=== PATIENT | male | born 2000 ===

== ENCOUNTER 2023-10-02 21:16 | Emergency (ER) | payer MEDICAID, SELFPAY ==
[2023-10-02 21:23] VITALS: BP 168/94; PULSE 106; O2SAT 99
[2023-10-02 22:33] VITALS: BP 153/90; PULSE 101; RESP 18; TEMP 37.2; O2SAT 99; BMI 32.9
--- NOTE | 2023-10-02 22:42 | ED.GENADULT ---
HPI - General Adult General Chief complaint: Skin/Abscess/Foreign Body Stated complaint: R KNEE PAIN Time Seen by Provider: 10/03/23 00:27 Source: patient Mode of arrival: ambulatory Limitations: no limitations History of Present Illness HPI narrative: Patient is a 22-year-old male who presents emergency department for evaluation of an abscess over the right knee. Denies any injury, no of bite, or additional skin lesions. The area is red, swollen and painful. He is able to walk on the leg, able to bend only to 90 degrees reportedly due to pain. Denies numbness, tingling, cold sensation to the foot. Denies fevers or chills. Related Data Previous Rx's Medication Instructions Recorded cephalexin 500 mg capsule 500 mg PO QID #27 caps 10/03/23 doxycycline hyclate 100 mg capsule 100 mg PO BID #13 caps 10/03/23 Allergies Allergy/AdvReac Type Severity Reaction Status Date / Time No Known Allergies Allergy Verified 10/03/23 01:05 Review of Systems Review of Systems: Yes all other systems are reviewed and are negative [facility] Past Medical History Attestation statement: The following information was validated with the patient. Source: old records reviewed Social History Social History Advance Directives: No Advance Directives Information Provided: Yes Physical Exam ED Vital Signs: Vital Signs - 24 hr 10/02/23 22:33 Temperature 99.0 F Pulse Rate 101 H Respiratory Rate 18 Blood Pressure 153/90 H Pulse Oximetry 99 Oxygen Delivery Method Room Air BMI result Body Mass Index 32.9 Appearance: Alert.?Oriented to person, place and time. No acute distress.?Normal affect.? Neck: Normal inspection.? Neck supple.?? CVS: Heart sounds normal. Normal heart rate and rhythm.? Pulses normal.?? Respiratory: No respiratory distress.? Lung sounds clear to auscultation bilaterally?? Skin: Skin warm and dry.? Normal skin color.? Extremities: No lower extremity edema.? No calf ttp?parham so-called lateral mood abscess, central fluctuance or yellow discoloration of surrounding erythema induration and warmth. Appears superficial, does not extend further. His there is no swelling to the knee joint self. 2+ DP/PT pulse bilaterally. Neuro: Moves all extremities spontaneously. Sensation intact bilaterally. Ambulates with normal steady gait. Course Course Course Narrative: RME performed by Marry Harrington PA-C. Patient is a 22 year old assigned male at presenting to the emergency department with an ingrown hair / abscess to the right knee. Patient placed back in the waiting room pending room availability. Procedures Abscess I/D Site: lower extremity Side (if applicable): right Local Anesthetic: lidocaine 1% Amount of anesthesia used (mL): 2 Technique: needle aspiration and incised with blade Irrigation: Yes Packing used?: none Medical Decision Making Medical Decision Making MDM Narrative: Patient is a 22-year-old male with no reported past medical history presenting to emergency department with concern for right knee. History physical exam consistent with abscess. No systemic toxicity, and patient is well-appearing. There is surrounding cellulitis. Not consistent with necrotizing fasciitis, myositis, DVT, osteomyelitis, septic arthritis. Patient is now status post incision and drainage of abscess and tolerated the procedure well. No complications. No labs or imaging indicated at this time. Will discharge home with course of oral antibiotics and symptomatic treatment instructions. Discussed reasons to return to the emergency department, and follow-up with primary care provider. Patient agreeable with plan of care. Differential Diagnosis Differential Diagnoses: The differential diagnosis associated with the presentation includes (As noted above) Tests considered The following testing was considered but not selected: Considered serum labs, see narrative above, deferred Prescription Management I considered prescription management with: Pain Medication (Acetaminophen/ibuprofen) and Antibiotic Discharge Plan Discharge Clinical Impression: Abscess of skin or subcutaneous tissue Patient Disposition: Home, Self-Care Instructions: Abscess (ED), Abscess Incision and Drainage (DC) Prescriptions: New doxycycline hyclate 100 mg capsule 100 mg PO BID Qty: 13 0RF cephalexin 500 mg capsule 500 mg PO QID Qty: 27 0RF
[2023-10-03 02:00] VITALS: BP 132/86; PULSE 76; RESP 16; O2SAT 98
[2023-10-03] MEDS: Doxycycline Monohydrate 100 MG CAPSULE PO (02:11)
[2023-10-03] MEDS: Lidocaine HCl 1 % MPF 5 ML VIAL SUBCUT (02:11)
[2023-10-03] MEDS: cephALEXin 500 MG CAPSULE PO (02:11)
== END 2023-10-03 02:25 | disposition home or self-care (01) ==
PROVIDERS: Emergency Provider Student in an Organized Health Care Education/Training Program
DX: L02.415 Cutaneous abscess of right lower limb (principal)
CPT/HCPCS: 10060; 99284

== ENCOUNTER 2024-01-30 04:10 | Emergency (ER) | payer MEDICAID, SELFPAY ==
[2024-01-30 04:31] VITALS: BP 152/102; PULSE 83; RESP 16; TEMP 37.3; O2SAT 97; BMI 33.1
--- NOTE | 2024-01-30 06:58 | ED_ITS ---
HPI - General Adult General Chief complaint: General Medical Stated complaint: personal Time Seen by Provider: 01/30/24 06:58 History of Present Illness HPI narrative: The patient is a 23-year-old male who lives in [facility]. He comes to the emergency room today because he is concerned about the possibility of a sexually transmitted disease. He recently noted a very small lesion on the head of his penis that made him concerned about a possibly sexually transmitted disease. He believes it is approximately 6 months since he last had sexual intercourse with anybody. He is uncircumcised. He has had no dysuria. No testicular pain. He 1st noted the lesion on his penis a couple of days ago. He thinks he has just gotten over some kind of flu or other respiratory illness. He says that he had about 5 days of cough and low-grade fevers that were similar to other symptoms that his family members had. He says he has a new primary care doctor's appointment in [place] in about 2 weeks. Related Data Previous Rx's Medication Instructions Recorded cephalexin 500 mg capsule 500 mg PO QID #27 caps 10/03/23 doxycycline hyclate 100 mg capsule 100 mg PO BID #13 caps 10/03/23 Allergies Allergy/AdvReac Type Severity Reaction Status Date / Time No Known Allergies Allergy Verified 10/03/23 01:05 Review of Systems Review of Systems: Yes all other systems are reviewed and are negative [facility] Social History Social History Advance Directives: No Advance Directives Information Provided: No Physical Exam ED Vital Signs: Vital Signs - 24 hr 01/30/24 04:31 Temperature 99.1 F Pulse Rate 83 Respiratory Rate 16 Blood Pressure 152/102 H Pulse Oximetry 97 Oxygen Delivery Method Room Air BMI result Body Mass Index 33.1 Const Other: The patient is awake and alert. He does not appear in any distress. He looks as though he is an ordinarily healthy 23-year-old. HENMT Other: Face is unremarkable. Oropharynx is unremarkable. Eyes Other: Pupils are round equal, conjunctivae are clear, extraocular movements intact Neck Other: No cervical adenopathy Resp Other: No wheezing Effort & Inspection: normal respiratory effort Auscultation: clear to auscultation bilaterally Cardio Rate: regular rate Rhythm: regular rhythm Heart sounds: S1 normal heart sound present and S2 normal heart sound present Other: The patient is an uncircumcised male. There is a very small area on the left side of the head of the penis with a possible subtle abnormality to the skin. There is a small area of very tiny bumps which could be very small vesicles. The lesions occupy an area about 3 mm across. This is a small cluster of tiny lesions. It is nontender. No ulceration. Foreskin seems unremarkable. There is no purulence. No penile discharge. Testicles are unremarkable. Skin Other: Skin is dry and unremarkable except as noted on the genitalia. Neuro Other: Awake, alert, oriented, appropriate, grossly neurologically intact. Extrem Other: No peripheral edema Medical Decision Making Medical Decision Making MDM Narrative: The patient is a 23-year-old male who was concerned about a very small and very subtle possible lesion on the head of the penis. The patient is uncircumcised. He last had sexual intercourse about 5 or 6 months ago. He has no symptoms of an STD such as dysuria or testicular discomfort. The very tiny lesion on the left head of the penis is fairly nonspecific. It is not painful. Nevertheless this does not seem like a syphilitic lesion. The lesion is potentially a cluster of tiny vesicles but this does not seem like a typical presentation of herpes. The patient will be tested for GC and chlamydia and we will also send a blood test for an RPR. Otherwise I think he may be discharged and follow up either with [facility] here in [place], alternatively he says he has a PCP appointment in [employer] in a couple of weeks. Discharge Plan Discharge Clinical Impression: Penile lesion Patient Disposition: Home, Self-Care Additional Instructions: I am not certain that the area of your concern represents anything significant. Tests have been sent check for gonorrhea, chlamydia, and syphilis. It would be good for you to get a second opinion. There is a clinic in [place] called [facility] that would be a good option for a 2nd opinion. Otherwise you may keep your appointment with your new doctor in [place] later this month. Return to the emergency room if worse. Prescriptions: No Action doxycycline hyclate 100 mg capsule 100 mg PO BID Qty: 13 0RF cephalexin 500 mg capsule 500 mg PO QID Qty: 27 0RF Referrals: [facility] [Provider Group]
[2024-01-30 07:49] VITALS: BP 151/96; PULSE 79; RESP 16; TEMP 36.8; O2SAT 96
[2024-01-30 08:06] LABS: Syphilis Screen Nonreactive (Nonreactive)
[2024-01-30 09:09] LABS: CT PCR NOT DETECTED (Not Detect.); NG PCR NOT DETECTED (Not Detect.)
== END 2024-01-30 07:50 | disposition home or self-care (01) ==
PROVIDERS: Emergency Provider Emergency Medicine
DX: N48.89 Other specified disorders of penis (principal); Z20.2 Contact with and (suspected) exposure to infections with a predominantly sexual mode of transmission
CPT/HCPCS: 0353U; 36415; 86780; 99282; 99283

== ENCOUNTER 2024-02-02 23:49 | Emergency (ER) | payer MEDICAID, SELFPAY ==
--- NOTE | ~2024-02-02 | US_ITS ---
EXAMINATION: US SCROTUM WITH DOPPLER CLINICAL INFORMATION: Left testicular pain.. COMPARISON: None available. TECHNIQUE: A sonogram of the scrotum was performed assessing wlalace-scale appearance and color Doppler flow. Spectral Doppler analysis of the arterial and venous flow were performed in the testes bilaterally. FINDINGS: RIGHT: Right testicle measures 3.8 x 2.8 x 2.2 cm, volume 12.5 mL. No focal testicular parenchymal lesions are visualized. Spectral Doppler analysis of the arterial and venous flow is normal in the right testis. Right epididymal head is normal in size. No right hydrocele or varicocele is seen. Right epididymal Doppler flow is normal. There is a 2 mm right epididymal head cyst. LEFT: Left testicle measures 3.7 x 2.7 x 2.6 cm, volume 13.5 mL. No focal testicular parenchymal lesions are visualized. Spectral Doppler analysis of the arterial and venous flow is normal in the left testis. Left epididymal head is normal in size. No left hydrocele or varicocele is seen. Left epididymal Doppler flow is normal. There is a 2 mm left epididymal cyst. US/US scrotum IMPRESSION: No acute findings. No evidence of epididymitis or orchitis. Tiny bilateral epididymal head cysts.
--- NOTE | ~2024-02-02 | XR_ITS ---
EXAMINATION: XR ABDOMEN KUB CLINICAL INDICATION: May COMPARISON: None available. TECHNIQUE: AP view of the abdomen. FINDINGS: Nondilated bowel gas pattern. Small to moderate volume of stool is present in the cecum and ascending colon. Bilateral stool in the remainder of the colon is within normal limits. Sensitivity for air-fluid levels or pneumatosis is demonstrated. No appreciable pneumatosis. Imaged lung bases are clear. No acute osseous findings. XR/XR KUB IMPRESSION: Nondilated bowel gas pattern. Small to moderate volume of stool in the cecum and ascending colon.
--- NOTE | ~2024-02-02 | US_ITS ---
EXAMINATION: US SCROTUM WITH DOPPLER CLINICAL INFORMATION: Left testicular pain.. COMPARISON: None available. TECHNIQUE: A sonogram of the scrotum was performed assessing wallace-scale appearance and color Doppler flow. Spectral Doppler analysis of the arterial and venous flow were performed in the testes bilaterally. FINDINGS: RIGHT: Right testicle measures 3.8 x 2.8 x 2.2 cm, volume 12.5 mL. No focal testicular parenchymal lesions are visualized. Spectral Doppler analysis of the arterial and venous flow is normal in the right testis. Right epididymal head is normal in size. No right hydrocele or varicocele is seen. Right epididymal Doppler flow is normal. There is a 2 mm right epididymal head cyst. LEFT: Left testicle measures 3.7 x 2.7 x 2.6 cm, volume 13.5 mL. No focal testicular parenchymal lesions are visualized. Spectral Doppler analysis of the arterial and venous flow is normal in the left testis. Left epididymal head is normal in size. No left hydrocele or varicocele is seen. Left epididymal Doppler flow is normal. There is a 2 mm left epididymal cyst. US/US scrotum doppler IMPRESSION: No acute findings. No evidence of epididymitis or orchitis. Tiny bilateral epididymal head cysts.
[2024-02-03] VITALS: BP 137/92; PULSE 100; RESP 18; TEMP 36.8; O2SAT 99
[2024-02-03 00:03] VITALS: BP 160/98; PULSE 116; O2SAT 97
[2024-02-03 00:06] VITALS: BMI 33.1
--- NOTE | 2024-02-03 00:15 | ED.GENADULT ---
HPI - General Adult General Chief complaint: General Medical Stated complaint: multiple complaints Time Seen by Provider: 02/03/24 00:04 Source: patient, EMS and old records reviewed Mode of arrival: EMS Limitations: no limitations History of Present Illness HPI narrative: 23 yo male with no sig PMH reports increased constipation for 2 weeks having harder stools but he is passing some stool and flatus no prior abdominal surgery. He also notes L testicular pain on and off starting today. No dysuria, penile drainage, rash. He denies concerns for STI. He denies n/v fevers. MD complaint: constipation, testicular pain Onset (ago): week(s) (2 weeks constipation, testicular pain 1 day) Location: abdomen, left and lower extremity Radiation: non-radiation Severity: moderate Quality: aching Pain Consistency: intermittent Relieving factors: none Exacerbating factors: none Associated symptoms: denies other symptoms Treatments prior to arrival: none Related Data Previous Rx's ?Medication ?Instructions ?Recorded cephalexin 500 mg capsule 500 mg PO QID #27 caps 10/03/23 doxycycline hyclate 100 mg capsule 100 mg PO BID #13 caps 10/03/23 fluticasone propionate 50 1 spray intranasal DAILY PRN nasal 02/03/24 mcg/actuation nasal congestion #16 grams spray,suspension polyethylene glycol 3350 17 17 g PO DAILY PRN constipation 02/03/24 gram/dose oral powder (Miralax) #119 grams Allergies Allergy/AdvReac Type Severity Reaction Status Date / Time No Known Allergies Allergy Verified 02/03/24 00:08 Review of Systems Review of Systems: Constitutional : No Weight loss, No Fever, No Chills ENT/Mouth : No sore throat, No Rhinorrhea Eyes: No Swelling, No Redness Cardiovascular : No Chest Pain, No SOB, NoEdema Respiratory : No Cough, No Sputum, No Wheezing Gastrointestinal : no Nausea, no Vomiting, no Diarrhea, no abdominal Pain, No Hematochezia, No Melena, pos constipation Genitourinary : No Dysuria, No Urinary Frequency, No Hematuria, No Urgency Musculoskeletal : No joint pain, No Myalgias, No Joint Swelling Skin : No Skin Lesions, No rash Neuro : No Weakness, No Numbness, No Dizziness, No Headache All other systems reviewed and are negative. [facility] Past Medical History Attestation statement: The following information was validated with the patient. Source: old records reviewed Medical History (Updated 02/03/24 @ 01:46 by Josy Silva DO) No pertinent past medical history Social History Social History (Updated 02/03/24 @ 00:20 by Josy Silva DO) Patient Tobacco Use Status: Tobacco use Unknown Advance Directives: No Advance Directives Information Provided: Yes Physical Exam ED Vital Signs: Vital Signs - 24 hr 02/03/24 00:00 02/03/24 02:01 Temperature 98.3 F 98.3 F Pulse Rate 100 100 Respiratory Rate 18 18 Blood Pressure 137/92 H 137/92 H Pulse Oximetry 99 99 Oxygen Delivery Method Room Air Room Air BMI result Body Mass Index 33.1 Appearance: Alert. Oriented X3. No acute distress. Eyes: Pupils equal, round and reactive to light. ENT: Pharynx normal. Neck: Normal inspection. Neck supple. CVS: Normal heart rate and rhythm. Pulses normal. Respiratory: No respiratory distress. Breath sounds normal. Abdomen: Soft and nontender. : mild ttp along L spermatic cord no mass no testicular swelling Skin: Skin warm and dry. Normal skin color. Normal skin turgor. Extremities: No lower extremity edema. No calf ttp Neuro: Oriented X 3. No motor deficit. No sensory deficit. Course Course Course Narrative: on discharge the patient c/o nasal congestion and at times it affects his breathing will start flonase Medical Decision Making Medical Decision Making MDM Narrative: 23 yo male here with benign abdominal exam but reports constipation but no n/v and no fevers at this time basic labs and KUB he also notes L testicular pain will obtain CTNG but denies STI concerns at this time will obtain US for mass/torsion and UA. Overall benign exam and clinical appearance. Differential Diagnosis Differential Diagnoses: The differential diagnosis associated with the presentation includes epididymitis, testicular mass, constipation, STI Admission/Observation Consideration of admission/observation: Escalation of care including admission/observation considered work up negative not toxic stable for DC Lab Data [facility] Lab Attestation statement: I reviewed the patient's lab results. 02/03/24 00:20 02/03/24 00:20 Labs: Lab Results 02/03/24 02/03/24 Range/Units 00:20 01:22 WBC 7.2 (4.8-10.8) X10*3/uL RBC 5.01 (4.60-5.80) X10*6/uL Hgb 14.9 (14.0-18.0) g/dl Hct 41.6 L (42.0-52.0) % MCV 83.0 (80.0-98.0) fL MCH 29.7 (27.0-33.0) pg MCHC 35.8 (31.0-36.0) g/dl RDW 12.3 (11.0-16.0) % Plt Count 233 (160-400) X10*3/uL MPV 9.2 L (9.4-12.4) fL Immature Gran % (Auto) 0.1 (0.0-0.4) % Neut % (Auto) 50.5 (45-73) % Lymph % (Auto) 38.7 (20-40) % Duval % (Auto) 8.6 (2-11) % Eos % (Auto) 1.7 (0-4) % Baso % (Auto) 0.4 (0-2) % Lymph # (Auto) 2.8 (1.2-4.9) X10*3/uL Duval # (Auto) 0.6 (0.1-1.2) X10*3/uL Eos # (Auto) 0.1 (0.0-0.4) X10*3/uL Baso # (Auto) 0.0 (0.0-0.2) X10*3/uL Abs Immat Gran (auto) 0.01 (0.00-0.03) X10*3/uL Absolute Neuts (auto) 3.7 (2.0-8.3) x10*3/uL Absolute Nucleated RBC 0.000 (0.0-0.012) X10*3/uL Nucleated RBC % (auto) 0.0 (0.0-0.2) /100WBC Sodium 141 (135-145) mmol/L Potassium 3.8 (3.3-5.1) mmol/L Chloride 108 (96-108) mmol/L Carbon Dioxide 26 (22-29) mmol/L Anion Gap 11 L (12-20) BUN 11 (9-16) mg/dL Creatinine 0.98 (0.5-1.4) mg/dL Estim Creat Clear Calc 114.7 Estimated GFR > 60 Random Glucose 94 (60-115) mg/dL Calcium 9.6 (8.4-10.2) mg/dL Magnesium 2.1 (1.6-2.6) mg/dL Total Bilirubin 0.6 (0.0-1.0) mg/dL Direct Bilirubin 0.2 (0.0-0.5) mg/dL AST 33 (5-37) U/L ALT 71 H (0-40) U/L Alkaline Phosphatase 65 (39-117) U/L Total Protein 6.9 (6.5-8.0) g/dL Albumin 4.2 (3.5-5.0) g/dL Urine Color Yellow Urine Appearance Clear Urine pH 6.5 (5.0-9.0) Ur Specific Sh[place] 1.010 (1.005-1.025) Urine Protein Negative (Neg-Trace) mg/dL Urine Glucose (UA) Negative (Negative) mg/dL Urine Ketones Negative (Negative) mg/dL Urine Blood Negative (Negative) Urine Nitrite Negative (Negative) Ur Leukocyte Esterase Negative (Negative) Independent Interpretation I performed an independent interpretation of an: Plain X-Ray (mild constipation) and Ultrasound (no torsion) Radiology Impression Discussion of test interpretation with radiology: I have reviewed the radiologist's reading. Independent Historian Clinical information obtained from an independent historian. History obtained from or confirmed by: EMS External Record Review External record reviewed: Inpatient record Prescription Management I considered prescription management with: Other Discharge Plan Discharge Clinical Impression: Pain in both testicles Constipation Qualifiers: Constipation type: unspecified constipation type Qualified Code(s): K59.00 - Constipation, unspecified Patient Disposition: Home, Self-Care Instructions: Constipation (ED), Testicle Pain (ED) Additional Instructions: small bump in one liver test which is likely due to extra weight on the abdomen - recheck with your doctor in 1 week avoid alcohol. xray shows mild to moderate stool urine negative Ultrasound no acute findings on testicles pending tests gonorrhea and chlamydia if positive we will call you Prescriptions: New polyethylene glycol 3350 [Miralax] 17 gram/dose powder 17 g PO DAILY PRN (Reason: constipation) Qty: 119 0RF fluticasone propionate 50 mcg/actuation spray,suspension 1 spray intranasal DAILY PRN (Reason: nasal congestion) Qty: 16 0RF Rx Instructions: administer into each nostril No Action doxycycline hyclate 100 mg capsule 100 mg PO BID Qty: 13 0RF cephalexin 500 mg capsule 500 mg PO QID Qty: 27 0RF Interventions: ED Discharge Assessment Last Done: 02/03/24 02:01 Discharge Date/Time: 02/03/24 02:02 Print Language: Estonian
[2024-02-03 00:26] LABS: Basophils Percent Auto 0.4 % (0-2); Eosinophils Absolute Auto 0.1 X10*3/uL (0.0-0.4); Eosinophils Percent Auto 1.7 % (0-4); Hematocrit 41.6 % (42.0-52.0); Hemoglobin 14.9 g/dl (14.0-18.0); Imm Gran Abs Auto 0.01 X10*3/uL (0.00-0.03); Imm Gran Pct Auto 0.1 % (0.0-0.4); Lymphocytes Absolute Auto 2.8 X10*3/uL (1.2-4.9); Lymphocytes Percent Auto 38.7 % (20-40); MANUAL DIFF FLAG NO; Mean Corpuscular HGB Conc 35.8 g/dl (31.0-36.0); Mean Corpuscular Hemoglobin 29.7 pg (27.0-33.0); Mean Platelet Volume 9.2 fL (9.4-12.4); Monocytes Absolute Auto 0.6 X10*3/uL (0.1-1.2); Monocytes Percent Auto 8.6 % (2-11); Neutrophils Absolute Auto 3.7 x10*3/uL (2.0-8.3); Neutrophils Percent Auto 50.5 % (45-73); Platelet Count 233 X10*3/uL (160-400); Red Blood Count 5.01 X10*6/uL (4.60-5.80); Red Cell Distribution Width 12.3 % (11.0-16.0); White Blood Count 7.2 X10*3/uL (4.8-10.8)
[2024-02-03 00:42] LABS: Alanine Aminotransferase 71 U/L (0-40); Albumin Level 4.2 g/dL (3.5-5.0); Alkaline Phosphatase 65 U/L (39-117); Anion Gap 11 (12-20); Aspartate Amino Transferase 33 U/L (5-37); Bilirubin Direct 0.2 mg/dL (0.0-0.5); Bilirubin Total 0.6 mg/dL (0.0-1.0); Blood Urea Nitrogen 11 mg/dL (9-16); Calcium 9.6 mg/dL (8.4-10.2); Carbon Dioxide 26 mmol/L (22-29); Chloride 108 mmol/L (96-108); Creatinine Clr Calc Pharmacy 114.7; Estimated Glomerular Filt Rate > 60; Glucose Random 94 mg/dL (60-115); Magnesium 2.1 mg/dL (1.6-2.6); Potassium 3.8 mmol/L (3.3-5.1); Sodium 141 mmol/L (135-145); Total Protein 6.9 g/dL (6.5-8.0)
[2024-02-03 01:30] LABS: Appearance Urine Clear; Color Urine Yellow; Glucose Urine UA Negative (Negative); Leukocyte Esterase Urine Negative (Negative); Nitrite Urine Negative (Negative); PH 6.5 (5.0-9.0); Urine Blood Negative (Negative); Urine Ketones Negative (Negative); Urine Protein Negative (Neg-Trace)
[2024-02-03 02:01] VITALS: BP 137/92; PULSE 100; RESP 18; TEMP 36.8; O2SAT 99
[2024-02-03 03:06] LABS: CT PCR NOT DETECTED (Not Detect.); NG PCR NOT DETECTED (Not Detect.)
== END 2024-02-03 02:02 | disposition home or self-care (01) ==
PROVIDERS: Emergency Provider Emergency Medicine
DX: K59.00 Constipation, unspecified (principal); N50.812 Left testicular pain; N50.811 Right testicular pain; R10.30 Lower abdominal pain, unspecified; Z79.899 Other long term (current) drug therapy
CPT/HCPCS: 0353U; 36415; 74018; 76870; 80048; 80076; 81003; 83735; 85025; 93975; 99284

== ENCOUNTER 2024-03-29 00:04 | Emergency (ER) | payer MEDICAID, SELFPAY ==
[2024-03-29 00:12] VITALS: BP 157/87; BP 164/102; PULSE 107; PULSE 80; RESP 16; TEMP 37.4; O2SAT 97; O2SAT 99; BMI 32.8
== END 2024-03-29 04:23 | disposition left against medical advice (07) ==
PROVIDERS: Emergency Provider Emergency Medicine
DX: R09.A2 Foreign body sensation, throat (principal)
CPT/HCPCS: 99281